=== PATIENT | male | born 1930 | race Caucasian/White ===

== ENCOUNTER → 2016-12-06 | Outpatient (CLI) | payer OTHER ==
[~2016-12-06] MED LIST: ASPI81CH2 PO; ATOR-22 PO; COCO1OIL2 PO; COEN1CAP17 PO; LATA0.009 OPB; LINICRE TOP; LORA-741 PO; LOSA50TA6 PO; METO-478 PO; MISCTAB88 PO; MULT-189 PO; MULT-618 PO; NAPR1TAB9 PO; PARO10TA PO; VITATAB11 PO
== END | disposition home or self-care (01) ==
LOC: C.LAB 11:57
PROVIDERS: ATTEND Urology
DX: C61 Malignant neoplasm of prostate (principal)